=== PATIENT | male | born 1985 | race Caucasian/White ===

== ENCOUNTER 2016-12-19 21:14 | Emergency (ER) | payer MEDICARE, OTHER ==
[2016-12-19 21:25] VITALS: BP 133/85; PULSE 98; RESP 18; TEMP 98.9
--- NOTE | 2016-12-19 22:18 | ED ---
ENT HPI - General Chief complaint: ENT Stated complaint: Jaw Pain Time Seen by Provider: 12/19/16 21:59 Source: patient Mode of arrival: ambulatory Limitations: no limitations - History of Present Illness Initial comments: Patient is a 31-year-old male presenting to the emergency department with chief complaint of right ear pain and right jaw pain. Patient states approximately 4 days ago he started having an upper respiratory infection with a runny nose, cough, and mild headache. Patient states his right ear feels full and he has been trying to pop it by opening his jaw. Treatment prior to arrival included Motrin and NyQuil. Patient denies chills, fevers, nausea, vomiting, shortness of breath, chest pain, or abdominal pain. Patient denies diarrhea or constipation. - Related Data Home Medications Medication Instructions Recorded Confirmed Dextroamphetamine/Amphetamine 40 mg PO DAILY 11/21/13 12/19/16 [Adderall] Previous Rx's Medication Instructions Recorded Pseudoephedrine HCl [Sudafed] 60 mg PO Q6HR #20 tab 12/19/16 Allergies Allergy/AdvReac Type Severity Reaction Status Date / Time No Known Allergies Allergy Verified 12/19/16 22:13 Review of Systems ROS Statement: Those systems with pertinent positive or pertinent negative responses have been documented in the HPI. ROS Other: All systems not noted in ROS Statement are negative. Past Medical History Past Medical History: No Reported History Additional Past Medical History / Comment(s): ADHD History of Any Multi-Drug Resistant Organisms: None Reported Past Surgical History: No Surgical Hx Reported Past Psychological History: ADD/ADHD Smoking Status: Current every day smoker Past Alcohol Use History: None Reported Past Drug Use History: None Reported General Exam - General Exam Comments Initial Comments: GENERAL: Pt awake and alert, well-appearing, well-nourished, and in no acute distress. HEAD: Atraumatic, normocephalic. EYES: Pupils equal, round, and reactive to light, extraocular movements intact, sclera anicteric, conjunctiva are normal. ENT: Oropharynx with mild erythema without exudates. Moist mucous membranes. Tympanic membranes without bulging or erythema. NECK:Normal range of motion, supple without lymphadenopathy. LUNGS: Breath sounds clear to auscultation bilaterally. No wheezes, rales, or rhonchi. HEART: Heart S1, S2, no S3 or S4. Regular rate and rhythm. No murmurs, rubs or gallops. ABDOMEN: Soft, nontender, nondistended, normoactive bowel sounds. No guarding, no rebound. No masses or organomegaly appreciated. MUSCULOSKELETAL: Normal ROM, no tenderness. Strength 5/5. EXTREMITIES: 2+ peripheral pulses. No edema. No calf tenderness. NEUROLOGICAL: Pt oriented x 3. No focal deficits noted. Strength and sensation grossly intact. PSYCH: Normal mood, normal affect. SKIN: Warm, dry, intact. Normal turgor. No rashes or lesions. Limitations: no limitations Course Vital Signs 12/19/16 21:22 Temperature 98.9 F Pulse Rate 98 Respiratory 18 Rate Blood Pressure 133/85 O2 Sat by Pulse 96 Oximetry Medical Decision Making - Medical Decision Making Upper respiratory infection suspect viral. Patient provided with prescription for Sudafed. Patient instructed to return to the emergency department with any new or worsening symptoms. Discharge instructions reviewed along with return parameters. Disposition Clinical Impression: Upper respiratory infection, viral Disposition: HOME SELF-CARE Condition: Good Additional Instructions: Continue Tylenol or Motrin for pain. Continue Sudafed for congestion every 4-6 hours as needed. May use cold or warm compresses for relief. Continue Claritin as already prescribed. Follow-up with primary care physician. Patient returns emergency department with any new or worsening symptoms. Prescriptions: Pseudoephedrine HCl [Sudafed] 60 mg PO Q6HR #20 tab Referrals: Evgeny Lyons DO [Primary Care Provider] - 1-2 days Time of Disposition: 22:17
== END 2016-12-19 22:56 | disposition home or self-care (01) ==
LOC: EC 21:14
DX: J06.9 Acute upper respiratory infection, unspecified (principal); H92.01 Otalgia, right ear; R68.84 Jaw pain; F90.1 Attention-deficit hyperactivity disorder, predominantly hyperactive type; Z79.899 Other long term (current) drug therapy; F17.200 Nicotine dependence, unspecified, uncomplicated
CPT/HCPCS: 99283

== ENCOUNTER 2018-09-24 09:49 | Emergency (ER) | payer MEDICARE, OTHER ==
[2018-09-24 09:54] VITALS: BP 145/97; PULSE 89; RESP 18; TEMP 97.6
--- NOTE | 2018-09-24 10:27 | ED ---
URI HPI - General Chief Complaint: Upper Respiratory Infection Stated Complaint: sore throat & ears Time Seen by Provider: 09/24/18 09:56 Source: patient, RN notes reviewed Mode of arrival: ambulatory Limitations: no limitations - History of Present Illness Initial Comments: 33-year-old male presents emergency Department chief complaint of URI symptoms. Patient states that symptoms started last 24 hours. Patient is concern as he is supposed to go to the hospital to train for trach care and replacement of his daughter. Patient states that he is concerned that he has upper respiratory infection. Patient reports he is congestion sore throat cough. Patient denies any known fever no chest pain or shortness breath. - Related Data Home Medications Medication Instructions Recorded Confirmed Dextroamphetamine/Amphetamine 30 mg PO BID 09/24/18 09/24/18 [Adderall] Previous Rx's Medication Instructions Recorded Azithromycin [Zithromax Z-pack] 0 mg PO DIRECTED #1 pack 09/24/18 Allergies Allergy/AdvReac Type Severity Reaction Status Date / Time hydrocodone AdvReac Vomiting Verified 09/24/18 10:23 Review of Systems ROS Statement: Those systems with pertinent positive or pertinent negative responses have been documented in the HPI. ROS Other: All systems not noted in ROS Statement are negative. Past Medical History Past Medical History: No Reported History Additional Past Medical History / Comment(s): ADHD History of Any Multi-Drug Resistant Organisms: None Reported Past Surgical History: No Surgical Hx Reported Past Psychological History: ADD/ADHD Smoking Status: Current every day smoker Past Alcohol Use History: None Reported Past Drug Use History: None Reported General Exam Limitations: no limitations General appearance: alert, in no apparent distress Head exam: Present: atraumatic, normocephalic, normal inspection Eye exam: Present: normal appearance, PERRL, EOMI. Absent: scleral icterus, conjunctival injection, periorbital swelling ENT exam: Present: normal exam, normal oropharynx, mucous membranes moist, TM's normal bilaterally, normal external ear exam Neck exam: Present: normal inspection. Absent: tenderness, meningismus, lymphadenopathy Respiratory exam: Present: normal lung sounds bilaterally. Absent: respiratory distress, wheezes, rales, rhonchi, stridor Cardiovascular Exam: Present: regular rate, normal rhythm, normal heart sounds. Absent: systolic murmur, diastolic murmur, rubs, gallop, clicks Neurological exam: Present: alert, oriented X3, CN II-XII intact Skin exam: Present: warm, dry, intact, normal color. Absent: rash Course Vital Signs 09/24/18 09:52 Temperature 97.6 F Pulse Rate 89 Respiratory 18 Rate Blood Pressure 145/97 O2 Sat by Pulse 98 Oximetry Medical Decision Making - Medical Decision Making 33-year-old male presented for URI symptoms. Negative chest x-ray, negative flu negative strep. Patient was up his upper respiratory infection though was placed on azithromycin secondary to [place] bolus around his daughter who is trach. Patient will follow-up and return for any worsening symptoms. - Lab Data Lab Results 09/24/18 09/24/18 Range/Units 10:10 10:10 Influenza Type A RNA Not Detected (Not Detectd) Influenza Type B (PCR) Not Detected (Not Detectd) Group A Strep Rapid Negative (Negative) Disposition Clinical Impression: Upper respiratory infection Disposition: HOME SELF-CARE Condition: Stable Instructions (If sedation given, give patient instructions): Upper Respiratory Infection (ED) Additional Instructions: Please return to the Emergency Department if symptoms worsen or any other concerns. Prescriptions: Azithromycin [Zithromax Z-pack] 0 mg PO DIRECTED #1 pack Is patient prescribed a controlled substance at d/c from ED?: No Referrals: Evgeny Lyons DO [Primary Care Provider] - 1-2 days Time of Disposition: 11:07
--- NOTE | 2018-09-24 10:43 | XR ---
EXAMINATION TYPE: XR chest 2V DATE OF EXAM: 09/24/2018 COMPARISON: 11/22/2011 INDICATION: Cough and congestion TECHNIQUE: Frontal and lateral views of the chest are obtained. FINDINGS: The heart size is normal. The pulmonary vasculature is normal. The lungs are clear. IMPRESSION: 1. No acute pulmonary process.
== END 2018-09-24 11:25 | disposition home or self-care (01) ==
LOC: EC 09:49
DX: J06.9 Acute upper respiratory infection, unspecified (principal); F90.9 Attention-deficit hyperactivity disorder, unspecified type; F17.200 Nicotine dependence, unspecified, uncomplicated; Z79.899 Other long term (current) drug therapy
CPT/HCPCS: 71046; 87081; 87430; 87502; 99283

== ENCOUNTER → 2021-09-13 | Outpatient (CLI) | payer MEDICARE, OTHER ==
--- NOTE | 2021-09-13 13:32 | CT ---
EXAMINATION TYPE: CT pelvis w con DATE OF EXAM: 09/13/2021 INDICATION: Scrotal pain and swelling. CT DLP: 1240 mGy.cm Automated Exposure Control for Dose Reduction was Utilized. TECHNIQUE AND CONTRAST: CT scan of the pelvis is performed with IV Contrast, patient injected with 100ml mL of Isovue 300. COMPARISON: Ultrasound dated 09/02/2021 FINDINGS: Duplex right kidney, slightly ptosed, without evidence of hydronephrosis. Unremarkable visualized por tion of the left kidney. No hydroureter bilaterally. Grossly unremarkable urinary bladder. Unremarkab le prostate and seminal vesicles. No gross scrotal abnormality. No inguinal hernia. Small fat-containing umbilical hernia. Unremarkable visualized portion of the sma ll bowel. Colonic diverticulosis without evidence of acute diverticulitis. Normal appendix. No suspic ious pelvic lymphadenopathy or sizable pelvic fluid. Unremarkable visualized bones. IMPRESSION: No significant scrotal abnormality by this CT scan. No definite acute abnormality seen in the pelvis. Incidental findings as described above. The previous scrotal ultrasound described signs of epididymoorchitis with could explain the patient's pain. Follow-up ultrasound can be considered if clinically required.
== END | disposition home or self-care (01) ==
LOC: RADCTMAIN 11:09
PROVIDERS: ATTEND Urology
DX: N50.89 Other specified disorders of the male genital organs (principal); R10.9 Unspecified abdominal pain
CPT/HCPCS: 72193; Q9967

== ENCOUNTER 2022-05-23 16:52 | Emergency (ER) | payer MEDICARE, OTHER ==
[2022-05-23 17:03] VITALS: TEMP 97
[2022-05-23] MEDS ORDERED: MORPHINE SULFATE 2 MG/ML SYRINGE IVP STA (17:11)
[2022-05-23] MEDS ORDERED: SODIUM CHLORIDE 0.9% 500 ML 500 ML IV STA (17:11)
[2022-05-23] MEDS ORDERED: DIPH,PERTUS(ACELL)TETVAC-LF 0.5 ML VIAL IM ONE (17:12)
[2022-05-23] MEDS ORDERED: MORPHINE SULFATE 4 MG/ML SYRINGE IV STA (17:45)
[2022-05-23] MEDS ORDERED: LIDOCAINE 1% INJ 10MG/ML (30 ML VIAL-PF) SQ ONE (17:54)
[2022-05-23 17:56] LABS: Basophils # (A) 0.1 k/uL (0-0.2); Basophils % (A) 1 %; Eosinophils # (A) 0.3 k/uL (0-0.7); Eosinophils % (A) 3 %; HGB 16.4 gm/dL (13.0-17.5); Lymphocytes # (A) 3.4 k/uL (1.0-4.8); Lymphocytes % (A) 35 %; MCH 31.7 pg (25.0-35.0); MCHC 37.3 g/dL (31.0-37.0); Mean Platelet Volume 7.1; Monocytes # (A) 0.5 k/uL (0-1.0); Monocytes % (A) 5 %; Neutrophils # (A) 5.1 k/uL (1.3-7.7); Neutrophils % (A) 53 %; Platelet Count 407 k/uL (150-450); RBC 5.17 m/uL (4.30-5.90); RDW 12.2 % (11.5-15.5); WBC 9.6 k/uL (3.8-10.6)
[2022-05-23 17:59] LABS: African American GFR (CKD) >90 (>60 ml/min/1.73 sqM); Anion Gap 11 mmol/L; Blood Urea Nitrogen 13 mg/dL (9-20); Carbon Dioxide 23 mmol/L (22-30); Chloride 106 mmol/L (98-107); Glucose 137 mg/dL (74-99); Non-African American GFR(CKD) >90 (>60 ml/min/1.73 sqM); Potassium 4.2 mmol/L (3.5-5.1); Sodium 140 mmol/L (137-145)
[2022-05-23] MEDS ORDERED: HYDROmorphone 1 MG/ML 1 ML SYRINGE IVP STA (18:08)
[2022-05-23] MEDS ORDERED: traMADol 50 MG TAB PO STA (19:04)
--- NOTE | 2022-05-23 19:10 | XR ---
PROCEDURE: XR femur RT - 4V DATE AND TIME: 05/23/2022 5:40 PM CLINICAL INDICATION: PHH; Possible FB TECHNIQUE: Department protocol COMPARISON: None FINDINGS: Imaging obtained from the right hip to the right knee with orthogonal views. THIGH SOFT TISSUES: Multifocal low attenuation noted, suspicious for multiple subcentimeter bubbles o f gas. No radiopaque foreign bodies. RIGHT FEMUR: Bones and joints are unremarkable. IMPRESSION: Soft tissue emphysema.
--- NOTE | 2022-05-23 19:11 | ED ---
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 The patient states she was working this afternoon in the kitchen, he backed up and backed into a knife point. The patient states he states there was a large amount of blood. He denies weakness or numbness distal to the injury. No other trauma. When questioned, patient not entirely sure when his last tetanus shot had been given. (Shoaib Emery) - Related Data Home Medications Medication Instructions Recorded Confirmed lisinopriL [Zestril] 20 mg PO DAILY 09/02/21 05/23/22 Dextroamphetamine/Amphetamine 30 mg PO DAILY 05/23/22 05/23/22 [Dextroamphetamine/Amphetamine ER 30 mg Cap] Allergies Allergy/AdvReac Type Severity Reaction Status Date / Time hydrocodone AdvReac SEE COMMENT Verified 05/23/22 18:13 Review of Systems ROS Other: All systems not noted in ROS Statement are negative. <Emma Saunders - Last Filed: 05/23/22 18:57> ROS Other: All systems not noted in ROS Statement are negative. Constitutional: Denies: fever, weakness Respiratory: Denies: cough, dyspnea Cardiovascular: Denies: chest pain, palpitations, edema Skin: Reports: other (Leg laceration) Neurological: Denies: weakness, numbness, paresthesias Hematological/Lymphatic: Denies: easy bleeding <Shoaib Emery - Last Filed: 05/25/22 06:04> ROS Statement: Those systems with pertinent positive or pertinent negative responses have been documented in the HPI. Past Medical History Past Medical History: No Reported History Additional Past Medical History / Comment(s): ADHD History of Any Multi-Drug Resistant Organisms: None Reported Past Surgical History: No Surgical Hx Reported Past Psychological History: ADD/ADHD Smoking Status: Current every day smoker Past Alcohol Use History: None Reported Past Drug Use History: None Reported <Emma Saunders - Last Filed: 05/23/22 18:57> General Exam Limitations: no limitations <Emma Saunders - Last Filed: 05/23/22 18:57> General appearance: alert, in no apparent distress Head exam: Present: atraumatic, normocephalic Respiratory exam: Present: normal lung sounds bilaterally. Absent: respiratory distress, wheezes, rales, rhonchi, stridor Cardiovascular Exam: Present: regular rate, normal rhythm, normal heart sounds. Absent: systolic murmur, diastolic murmur, rubs, gallop GI/Abdominal exam: Present: soft. Absent: distended, tenderness, guarding Back exam: Present: normal inspection Neurological exam: Present: alert. Absent: motor sensory deficit Skin exam: Present: warm, dry, normal color, other (Patient has approximately 5 cm laceration to the posterior aspect of the right leg. There is currently no arterial bleeding. There is no sensorimotor deficit distal to the injury. There are good distal pulses. Normal capillary refill.) <Shoaib Emery - Last Filed: 05/25/22 06:04> Course Vital Signs 05/23/22 05/23/22 16:59 19:43 Temperature 97 F L Pulse Rate 99 87 Respiratory 20 15 Rate Blood Pressure 142/86 139/74 O2 Sat by Pulse 95 100 Oximetry Procedures - Laceration Laceration #1 Consent Obtained: verbal consent Indication: laceration Site: lower extremity (right thigh) Size (cm): 5 Description: linear Depth: involves muscle layer Anesthetic Used: lidocaine 1% Anesthesia Technique: local infiltration Pre-repair: wound explored, irrigated extensively, deep structures intact Type of Sutures: nylon Size of Sutures: 4-0 Number of Sutures: 7 Technique: simple, interrupted Patient Tolerated Procedure: well, no complications <Emma Saunders - Last Filed: 05/23/22 18:57> Medical Decision Making - Lab Data Result diagrams: 05/23/22 17:52 05/23/22 17:52 <Emma Saunders - Last Filed: 05/23/22 18:57> - Lab Data Result diagrams: 05/23/22 17:52 05/23/22 17:52 <Shoaib Emery - Last Filed: 05/25/22 06:04> - Medical Decision Making I have reviewed all documentation, results, and performed the MDM in its entirety, which constitutes more than 50% of the visit (Shoaib Emery) - Lab Data Lab Results 05/23/22 05/23/22 Range/Units 17:52 17:52 WBC 9.6 (3.8-10.6) k/uL RBC 5.17 (4.30-5.90) m/uL Hgb 16.4 (13.0-17.5) gm/dL Hct 44.0 (39.0-53.0) % MCV 85.0 (80.0-100.0) fL MCH 31.7 (25.0-35.0) pg MCHC 37.3 H (31.0-37.0) g/dL RDW 12.2 (11.5-15.5) % Plt Count 407 (150-450) k/uL MPV 7.1 Neutrophils % 53 % Lymphocytes % 35 % Monocytes % 5 % Eosinophils % 3 % Basophils % 1 % Neutrophils # 5.1 (1.3-7.7) k/uL Lymphocytes # 3.4 (1.0-4.8) k/uL Monocytes # 0.5 (0-1.0) k/uL Eosinophils # 0.3 (0-0.7) k/uL Basophils # 0.1 (0-0.2) k/uL Sodium 140 (137-145) mmol/L Potassium 4.2 (3.5-5.1) mmol/L Chloride 106 (98-107) mmol/L Carbon Dioxide 23 (22-30) mmol/L Anion Gap 11 mmol/L BUN 13 (9-20) mg/dL Creatinine 0.78 (0.66-1.25) mg/dL Est GFR (CKD-EPI)AfAm >90 (>60 ml/min/1.73 sqM) Est GFR (CKD-EPI)NonAf >90 (>60 ml/min/1.73 sqM) Glucose 137 H (74-99) mg/dL Calcium 9.0 (8.4-10.2) mg/dL Disposition <Emam Saunders - Last Filed: 05/23/22 18:57> Is patient prescribed a controlled substance at d/c from ED?: No <Shoaib Emery - Last Filed: 05/25/22 06:04> Clinical Impression: Leg laceration Disposition: HOME SELF-CARE Condition: Good Instructions (If sedation given, give patient instructions): Laceration (DC) Referrals: Evgeny Lyons DO [Primary Care Provider] - 1-2 days
[2022-05-23] MEDS ORDERED: traMADol 50 MG STARTER PACK 3 TAB BTL PO STA (19:30)
[2022-05-23 19:44] VITALS: BP 139/74; PULSE 87; RESP 15
== END 2022-05-23 20:00 | disposition home or self-care (01) ==
LOC: EC 16:52
DX: S81.811A Laceration without foreign body, right lower leg, initial encounter (principal); F90.9 Attention-deficit hyperactivity disorder, unspecified type; F17.200 Nicotine dependence, unspecified, uncomplicated; Z88.5 Allergy status to narcotic agent; W26.0XXA Contact with knife, initial encounter; Y92.000 Kitchen of unspecified non-institutional (private) residence as the place of occurrence of the external cause
CPT/HCPCS: 99284; 96365; 96366; 96375 ×2; 96376; 96361; 90471; 12002; 36415; 80048; 85025; 73552; 90715; J2270 ×2; J0690; J2001; J1170

== ENCOUNTER → 2023-03-21 | Outpatient (CLI) | payer MEDICARE, OTHER ==
[2023-03-21 17:54] LABS: Urine Alcohol Negative (Negative); Urine Barbiturate Negative (Negative); Urine Cocaine Negative (Negative); Urine Methadone Negative (Negative); Urine Opiates Negative (Negative); Urine Phencyclidine Negative (Negative)
== END | disposition home or self-care (01) ==
LOC: LABWHC1 09:43
PROVIDERS: ATTEND Family Medicine
DX: F90.0 Attention-deficit hyperactivity disorder, predominantly inattentive type (principal)
CPT/HCPCS: 80306